=== PATIENT | male | born 1980 | race Caucasian/White ===

== ENCOUNTER 2024-11-23 11:19 | Emergency (ER) | payer OTHER ==
[~2024-11-23] VITALS: Ht 175.3 cm; Wt 79.5 kg
[2024-11-23 11:50] VITALS: BP 101/56; PULSE 68; RESP 18; TEMP 98.8; O2SAT 98
[2024-11-23 11:55] LABS: BASOPHILS % (AUTO) 0.4 % (0.0-2.0); EOSINOPHILS % (AUTO) 0.4 % (1.0-6.0); HEMATOCRIT 41.4 % (41-53); LYMPHOCYTES % (AUTO) 11.4 % (22.0-44.0); MEAN CORPUSCULAR HEMOGLOBIN 30.5 pg (26.0-34.0); MEAN CORPUSCULAR HGB CONC 33.9 G/dL (31.0-37.0); MEAN CORPUSCULAR VOLUME 90 fL (80-100); MONOCYTES # (AUTO) 0.5 K/uL (0.1-1.0); MONOCYTES % (AUTO) 5.7 % (2.0-9.0); NEUTROPHILS # (AUTO) 7.5 K/uL (1.8-7.7); NEUTROPHILS % (AUTO) 82.1 % (40.0-70.0); PLATELET COUNT (AUTO) 372 K/uL (150-450); RED CELL DISTRIBUTION WIDTH 13.2 % (11.5-14.5); WHITE BLOOD COUNT (AUTO) 9.2 K/uL (4.5-11.0)
[2024-11-23] MEDS: LORazepam 1 MG TABLET PO ONE (12:17)
[2024-11-23 12:26] LABS: ANION GAP 5 mmol/L (8-16); CALCIUM, TOTAL 8.9 mg/dL (8.8-10.5); CARBON DIOXIDE 32 mmol/L (22-29); CHLORIDE 103 mmol/L (98-107); CREATININE 1.03 mg/dL (0.60-1.30); GLOMERULAR FILTR. RATE CALC > 60 mL/min (>60); GLUCOSE,RANDOM 92 mg/dL (70-110); SODIUM SERUM 140 mmol/L (136-145); UREA NITROGEN, BLOOD 8 mg/dL (7-18)
[2024-11-23 12:32] LABS: ALCOHOL, BLOOD (SERUM) < 3 mg/dL (0-10)
[2024-11-23 12:55] LABS: COVID AG,FIA SOURCE NASAL SWAB
[2024-11-23 13:22] LABS: SARS-COV2 (COVID) ANTIGEN,FIA Negative (Negative)
== END 2024-11-23 13:40 ==
LOC: EMS 11:19
DX: F41.9 Anxiety disorder, unspecified (principal); Z00.8 Encounter for other general examination; Z20.822 Contact with and (suspected) exposure to COVID-19; Z79.899 Other long term (current) drug therapy
CPT/HCPCS: 99285; 87426; 80048; 85025; 36415; G0480

== ENCOUNTER 2024-11-24 03:35 | Inpatient (IN) | payer MEDICAID ==
[~2024-11-24] VITALS: Ht 175.3 cm; Wt 77.7 kg
[2024-11-24 05:36] VITALS: BP 113/71; PULSE 70; RESP 18; TEMP 97.3; O2SAT 98
[2024-11-24 05:55] VITALS: BP 113/71; PULSE 70; RESP 18; TEMP 97.3; O2SAT 98
[2024-11-24] MEDS ORDERED: PNEUMOCOCCAL VACCINE POLYVALENT 0.5 ML SYRINGE [PPSV23] IM. ONE (06:00)
[2024-11-24] MEDS ORDERED: INFLUENZA VIRUS VACCINE TVS (6MO+) 2024-25/PF 45 MCG/0.5 ML SYRINGE IM. ONE (06:00)
[2024-11-24] MEDS ORDERED: PETROLATUM,WHITE 28 GM JELLY TP PRN (07:45)
[2024-11-24] MEDS ORDERED: CloNIDine HCL 0.1 MG TABLET PO PRN (07:45)
[2024-11-24] MEDS ORDERED: IBUPROFEN 600 MG TABLET PO PRN (07:45)
[2024-11-24] MEDS ORDERED: OMEPRAZOLE 20 MG CAPSULE PO PRN (07:45)
[2024-11-24] MEDS ORDERED: DOCUSATE SODIUM 100 MG CAPSULE PO PRN (07:45)
[2024-11-24] MEDS ORDERED: MAGNESIUM HYDROXIDE SUSPENSION 30 ML UDCUP PO PRN (07:45)
[2024-11-24] MEDS ORDERED: LOPERAMIDE HCL 2 MG CAPSULE PO PRN (07:45)
[2024-11-24] MEDS ORDERED: BACITRACIN 28 GM OINTMENT TP PRN (07:45)
[2024-11-24] MEDS ORDERED: ALBUTEROL SULFATE HFA 90 MCG/PUFF 8 GM INHALER IH PRN (07:45)
[2024-11-24] MEDS ORDERED: MAG HYDROX/ALUMINUM HYD/SIMETH ES 30 ML SUSPENSION UDCUP PO PRN (07:45)
[2024-11-24] MEDS ORDERED: ACETAMINOPHEN 325 MG TABLET PO PRN (07:45)
[2024-11-24 08:07] VITALS: RESP 16
[2024-11-24] MEDS: LURASIDONE HCL 40 MG TABLET PO SCH (11:06)
[2024-11-24] MEDS: HALOPERIDOL 5 MG TABLET PO PRN (18:17)
[2024-11-24] MEDS: LORazepam 2 MG TABLET PO PRN (18:17)
[2024-11-24 20:07] VITALS: BP 127/82; PULSE 71; RESP 18; TEMP 97.4; O2SAT 99
[2024-11-25 08:41] VITALS: BP 113/71; PULSE 70; RESP 18; TEMP 97.8; O2SAT 96
[2024-11-25] MEDS ORDERED: METHADONE HCL 10 MG TABLET PO ONE (10:15)
[2024-11-25] MEDS: METHADONE HCL 10 MG/5 ML SOLUTION ORAL.SYG PO ONE (10:31)
[2024-11-25 20:44] VITALS: BP 132/85; PULSE 91; RESP 18; TEMP 97.8; O2SAT 99
[2024-11-25] MEDS: ZOLPIDEM TARTRATE 10 MG TABLET PO PRN (21:03)
[2024-11-26 08:36] VITALS: BP 105/68; PULSE 77; RESP 17; TEMP 97.4; O2SAT 98
[2024-11-26 08:52] LABS: BASOPHILS % (AUTO) 0.5 % (0.0-2.0); EOSINOPHILS % (AUTO) 1.1 % (1.0-6.0); HEMATOCRIT 44.8 % (41-53); LYMPHOCYTES # (AUTO) 1.7 K/uL (1.0-4.8); LYMPHOCYTES % (AUTO) 24.4 % (22.0-44.0); MEAN CORPUSCULAR HEMOGLOBIN 30.4 pg (26.0-34.0); MEAN CORPUSCULAR HGB CONC 33.6 G/dL (31.0-37.0); MEAN CORPUSCULAR VOLUME 91 fL (80-100); MONOCYTES # (AUTO) 0.5 K/uL (0.1-1.0); MONOCYTES % (AUTO) 7.6 % (2.0-9.0); NEUTROPHILS # (AUTO) 4.7 K/uL (1.8-7.7); NEUTROPHILS % (AUTO) 66.4 % (40.0-70.0); PLATELET COUNT (AUTO) 367 K/uL (150-450); RED BLOOD CELL COUNT(AUTO) 4.94 MIL/uL (4.50-5.90); RED CELL DISTRIBUTION WIDTH 13.4 % (11.5-14.5); WHITE BLOOD COUNT (AUTO) 7.1 K/uL (4.5-11.0)
[2024-11-26 09:14] LABS: HEMOGLOBIN A1C 5.5 % (3.8-5.6)
[2024-11-26 09:17] LABS: ALANINE AMINOTRANSFERASE 19 U/L (12-78); ALBUMIN 3.6 g/dL (3.4-5.0); ALKALINE PHOSPHATASE 82 U/L (46-116); ANION GAP 6 mmol/L (8-16); ASPARTATE AMINOTRANSFERASE 15 U/L (15-37); BILIRUBIN,TOTAL 0.5 mg/dL (0.1-1.0); CALCIUM, TOTAL 8.5 mg/dL (8.8-10.5); CARBON DIOXIDE 31 mmol/L (22-29); CHLORIDE 104 mmol/L (98-107); CHOLESTEROL 161 mg/dL (131-200); CREATININE 1.13 mg/dL (0.60-1.30); FREE T4 (FREE THYROXINE) 0.99 ng/dL (0.76-1.46); GLOMERULAR FILTR. RATE CALC > 60 mL/min (>60); GLUCOSE,RANDOM 118 mg/dL (70-110); HDL CHOLESTEROL 53 mg/dL (40-60); LDL CHOL (CALC.) 86 mg/dL (0-130); POTASSIUM 3.5 mmol/L (3.5-5.1); SODIUM SERUM 141 mmol/L (136-145); THYROID STIMULATING HORMONE 2.28 uIU/mL (0.36-3.74); TRIGLYCERIDES 111 mg/dL (15-150); UREA NITROGEN, BLOOD 8 mg/dL (7-18)
[2024-11-26] MEDS: DULoxetine HCL 60 MG CAPSULE PO SCH (09:44)
[2024-11-26] MEDS: NICOTINE POLACRILEX 2 MG LOZENGE PO PRN (09:52)
[2024-11-26] MEDS: RisperiDONE 1 MG TABLET PO SCH (16:46)
[2024-11-26] MEDS: METHADONE HCL 10 MG TABLET PO SCH (16:47)
[2024-11-26 20:00] VITALS: BP 110/68; PULSE 68; RESP 16; TEMP 97.8; O2SAT 98
[2024-11-27 13:52] VITALS: RESP 16
[2024-11-27 20:14] VITALS: BP 117/66; PULSE 70; RESP 16; TEMP 98.6; O2SAT 96
[2024-11-28 09:35] VITALS: BP 126/73; PULSE 84; RESP 15; TEMP 97.8; O2SAT 97
[2024-11-28] MEDS: ONDANSETRON 4 MG TABLET PO PRN (10:36)
[2024-11-28] MEDS: BENZOCAINE/MENTHOL LOZENGE PO PRN (17:00)
[2024-11-28 21:20] VITALS: BP 117/75; PULSE 73; RESP 16; TEMP 97.5; O2SAT 97
[2024-11-29] MEDS: RisperiDONE 3 MG TABLET PO SCH (08:13)
[2024-11-29 08:51] VITALS: BP 118/79; PULSE 72; RESP 16; TEMP 97.5; O2SAT 100
[2024-11-29] MEDS ORDERED: RISP3TAB77 PO (12:40)
== END 2024-11-29 16:22 | disposition home or self-care (01) | DRG 750 ==
LOC: B3A 03:48
PROVIDERS: ADMIT Psychiatry & Neurology Child & Adolescent Psychiatry; ATTEND Psychiatry & Neurology Psychiatry
PROC: GZHZZZZ Group Psychotherapy (ICD-10-PCS; principal; 2024-11-24)
PROC: GZ56ZZZ Individual Psychotherapy, Supportive (ICD-10-PCS; 2024-11-24)
DX: F25.1 Schizoaffective disorder, depressive type (principal); R45.851 Suicidal ideations; F41.9 Anxiety disorder, unspecified; G47.00 Insomnia, unspecified; K59.00 Constipation, unspecified; F11.20 Opioid dependence, uncomplicated; F94.0 Selective mutism; Z79.899 Other long term (current) drug therapy; Z72.0 Tobacco use
CPT/HCPCS: 80053; 80061; 83036; 84439; 84443; 85025; Q0162